=== PATIENT | female | born 1955 | race Caucasian/White ===

== ENCOUNTER 2023-10-22 20:41 | Inpatient (IN) | payer OTHER ==
[~2023-10-22] VITALS: Ht 167.6 cm; Wt 126.1 kg
[2023-10-22] MEDS: PIPERACILLIN/TAZOBACTAM 2.25 GM in NS 50 ML IV ONE (00:10)
[2023-10-22] MEDS: VANCOMYCIN HCL 1,500 MG in NS 250 ML IV ONE (01:15)
[2023-10-22 20:52] VITALS: BP_SYST 104; PULSE 92; RESP 18; TEMP 98.2; O2SAT 95
[2023-10-22 21:57] LABS: HEMATOCRIT 33.1 % (36-48); HEMOGLOBIN 10.7 g/dL (12.0-16.0); MEAN CORPUSCULAR HEMOGLOBIN 28 pg (27-31); MEAN CORPUSCULAR HGB CONC 32 % (32-36); MEAN CORPUSCULAR VOLUME 88 fL (79.0-98.0); PLATELET COUNT (AUTO) 400 K/uL (130-430); RED BLOOD CELL COUNT(AUTO) 3.77 MIL/uL (4.2-6.2); RED CELL DISTRIBUTION WIDTH 15.7 % (9.0-15.0)
[2023-10-22 22:07] LABS: WHITE BLOOD COUNT (AUTO) 31.2 K/uL (4.8-10.8)
[2023-10-22 22:09] LABS: ANION GAP 10 (5-15); CALCIUM 8.1 mg/dL (8.4-11.0); CARBON DIOXIDE 25 mmol/L (23-29); CHLORIDE 101 mmol/L (98-107); GFR AFRICAN AMERICAN 29 mL/min (>90); GLUCOSE 90 mg/dL (74-106); POTASSIUM 4.3 mmol/L (3.5-5.1); SODIUM SERUM 136 mmol/L (136-145); UREA NITROGEN, BLOOD 40 mg/dL (8-21)
[2023-10-22 22:10] LABS: INR 1.2 (0.8-1.2); PROTHROMBIN TIME 12.4 SECS (9.5-12.5)
[2023-10-22 22:13] LABS: GFR NON AFRICAN-AMERICAN 24 mL/min (>90)
[2023-10-22 22:15] LABS: ANISOCYTOSIS 1+; BAND % (MANUAL) 6 % (0-6); BASOPHILS % (MANUAL) 0 % (0-2); EOSINOPHILS % (MANUAL) 0 % (0-7); LYMPHOCYTES % (MANUAL) 3 % (20-46); MONOCYTES % (MANUAL) 3 % (0-11); OVALOCYTES FEW; PLATELET ESTIMATE ADEQUATE (ADEQUATE); TARGET CELLS RARE
[2023-10-22 22:16] LABS: ACETONE, SERUM NEGATIVE (NEGATIVE)
[2023-10-22 22:42] LABS: ALANINE AMINOTRANSFERASE 14 U/L (12-78); ALBUMIN 1.6 g/dL (3.4-4.8); ALCOHOL, BLOOD 3 mg/dL (<10); ASPARTATE AMINOTRANSFERASE 47 U/L (10-37); BILIRUBIN,DIRECT 1.7 mg/dL (0.0-0.3); CREATINE KINASE, TOTAL 93 U/L (26-192); SALICYLATE 2 mg/dL (3-30); TOTAL BILIRUBIN 2.8 mg/dL (0.0-1.0); TOTAL PROTEIN, SERUM 6.6 g/dL (6.4-8.3)
[2023-10-22 22:43] LABS: ACETAMINOPHEN < 1 ug/mL (1-30)
[2023-10-22] MEDS ORDERED: PIPERACILLIN/TAZOBACTAM 2.25 GM VIAL IV ONE ×2 (22:54)
[2023-10-22] MEDS ORDERED: VANCOMYCIN HCL 1000 MG/VIAL IV ONE (22:54)
[2023-10-22 22:55] LABS: BARBITURATE, URINE NEGATIVE (NEG <=200); BENZODIAZEPINE, URINE NEGATIVE (NEG <=150); CANNABINOID, URINE NEGATIVE (NEG <=50); COCAINE, URINE NEGATIVE (NEG <=150); METHAMPHETAMINES SCREEN,URINE NEGATIVE (NEG <=500); OPIATE, URINE NEGATIVE (NEG <=100); PHENCYCLIDINE SCREEN,URINE NEGATIVE (NEG <=25); UR TRICYCLIC ANTIDEPRESSANTS POSITIVE (NEG <=300); URINE AMPHETAMINE NEGATIVE (NEG <=500); URINE METHADONE NEGATIVE (NEG <=200); URINE OXYCODONE SCREEN NEGATIVE (NEG <=100)
[2023-10-22] MEDS ORDERED: VANCOMYCIN HCL 500 MG/VIAL IV ONE (22:55)
[2023-10-22 23:09] LABS: CLARITY/URINE CLOUDY (CLEAR)
[2023-10-22] MEDS: NS 500 ML IV ONE (23:11)
[2023-10-22 23:14] LABS: COLOR,URINE RED (YELLOW)
[2023-10-22 23:15] LABS: BACTERIA,URINE MODERATE /HPF (None Seen); WBC,URINE 50-80 /HPF (0-3)
[2023-10-22 23:16] LABS: MUCUS,URINE None Seen /LPF (None Seen)
[2023-10-22] MEDS: ASPIRIN 300 MG/SUPP.RECT SUPP RC ONE (23:30)
[2023-10-23] VITALS (24 sets, daily range): BP systolic 62–125; PULSE 77–97; RESP 9–26; TEMP 95.8–99.6; O2SAT 89–100
[2023-10-23] MEDS: ASPIRIN 300 MG/SUPP.RECT SUPP RC ONE (00:18)
[2023-10-23] MEDS: HEPARIN 25,000 UNITS/D5W 250ML 250 ML IV ONE (02:15)
[2023-10-23] MEDS: D5NS 1,000 ML IV ONE (03:23)
[2023-10-23] MEDS: HEPARIN SODIUM,PORCINE 5,000 UNITS/ML VIAL IVP ONE (03:30)
[2023-10-23] MEDS ORDERED: NOREPINEPHRINE BITARTRATE 4 MG in D5W 246 ML IV PRN (03:45)
[2023-10-23] MEDS ORDERED: HEPARIN SODIUM,PORCINE 2000 UNITS/0.4 ML BOLUS IVP PRN ×2 (03:45→09:45)
[2023-10-23] MEDS ORDERED: HEPARIN SODIUM,PORCINE 3000 UNITS/0.6 ML BOLUS IVP PRN ×2 (03:45→09:45)
[2023-10-23] MEDS: NOREPINEPHRINE 4 MG/4 ML VIAL IV ONE ×2 (03:50→08:10)
[2023-10-23] MEDS: NOREPINEPHRINE BITARTRATE 4 MG in NS 246 ML IV ONE (04:03)
[2023-10-23] MEDS: HEPARIN 25,000 UNITS in 250 ML PREMIX IV PRN (04:06)
[2023-10-23] MEDS ORDERED: *HEPARIN PER PHARMACY XX PRN (09:30)
[2023-10-23] MEDS ORDERED: LORazepam 2 MG/ML VIAL IVP PRN (09:30)
[2023-10-23 10:24] LABS: BASOPHILS % (AUTO) 0.1 % (0.0-2.0); EOSINOPHILS # (AUTO) 0.3 K/uL (0.0-0.4); EOSINOPHILS % (AUTO) 0.9 % (0.0-4.0); HEMATOCRIT 32.2 % (36-48); HEMOGLOBIN 10.3 g/dL (12.0-16.0); LYMPHOCYTES # (AUTO) 1.1 K/uL (1.0-5.5); MEAN CORPUSCULAR HEMOGLOBIN 29 pg (27-31); MEAN CORPUSCULAR HGB CONC 32 % (32-36); MEAN CORPUSCULAR VOLUME 89 fL (79.0-98.0); MONOCYTES # (AUTO) 1.4 K/uL (0.0-1.0); MONOCYTES % (AUTO) 5.3 % (1.7-9.3); NEUTROPHILS # (AUTO) 24.3 K/uL (1.8-7.7); PLATELET COUNT (AUTO) 374 K/uL (130-430); RED BLOOD CELL COUNT(AUTO) 3.61 MIL/uL (4.2-6.2); WHITE BLOOD COUNT (AUTO) 27.1 K/uL (4.8-10.8)
[2023-10-23 10:25] LABS: NEUTROPHILS % (AUTO) 89.7 % (40.0-70.0)
[2023-10-23] MEDS: D5/0.45 NS 1,000 ML IV SCH (10:44)
[2023-10-23] MEDS: NOREPINEPHRINE BITARTRATE 4 MG in NS 246 ML IV PRN (10:58)
[2023-10-23 11:05] LABS: ALBUMIN 1.7 g/dL (3.4-4.8); CALCIUM 8.1 mg/dL (8.4-11.0); CREATININE 2.5 mg/dL (0.55-1.30); PHOSPHORUS 5.4 mg/dL (2.7-4.5); POTASSIUM 3.8 mmol/L (3.5-5.1); TOTAL BILIRUBIN 2.8 mg/dL (0.0-1.0); TOTAL PROTEIN, SERUM 6.6 g/dL (6.4-8.3)
[2023-10-23] MEDS: FUROSEMIDE 20 MG/2 ML VIAL IVP ONE (12:24)
[2023-10-23] MEDS: PIPERACILLIN/TAZO 2.25G/DEX-IS 50 ML IV SCH (12:28)
[2023-10-23] MEDS: NOREPINEPHR 16 MG/250 mL NS 250 ML IV PRN (13:48)
[2023-10-23] MEDS: *HEPARIN PER PHARMACY XX ONE (21:05)
[2023-10-24] VITALS (23 sets, daily range): BP systolic 77–120; PULSE 79–98; RESP 7–15; TEMP 96.1–98.6; O2SAT 92–99
[2023-10-24 05:32] LABS: BASOPHILS % (AUTO) 0.1 % (0.0-2.0); EOSINOPHILS # (AUTO) 0.1 K/uL (0.0-0.4); EOSINOPHILS % (AUTO) 0.3 % (0.0-4.0); HEMATOCRIT 29.3 % (36-48); HEMOGLOBIN 9.7 g/dL (12.0-16.0); LYMPHOCYTES # (AUTO) 1.1 K/uL (1.0-5.5); LYMPHOCYTES % (AUTO) 4.6 % (20.5-51.5); MEAN CORPUSCULAR HEMOGLOBIN 29 pg (27-31); MEAN CORPUSCULAR HGB CONC 33 % (32-36); MEAN CORPUSCULAR VOLUME 88 fL (79.0-98.0); MONOCYTES # (AUTO) 1.2 K/uL (0.0-1.0); MONOCYTES % (AUTO) 5.2 % (1.7-9.3); NEUTROPHILS # (AUTO) 20.4 K/uL (1.8-7.7); NEUTROPHILS % (AUTO) 89.8 % (40.0-70.0); PLATELET COUNT (AUTO) 388 K/uL (130-430); RED BLOOD CELL COUNT(AUTO) 3.34 MIL/uL (4.2-6.2); RED CELL DISTRIBUTION WIDTH 15.6 % (9.0-15.0); WHITE BLOOD COUNT (AUTO) 22.7 K/uL (4.8-10.8)
[2023-10-24 05:52] LABS: CALCIUM 7.9 mg/dL (8.4-11.0); CREATININE 2.91 mg/dL (0.55-1.30); POTASSIUM 3.6 mmol/L (3.5-5.1)
[2023-10-24 09:50] LABS: ABG O2 SAT% ESTIMATE 96.5 % (94.0-100.0); BLOOD GAS HCO3 19.9 mmol/L (21.0-27.0); BLOOD GAS PCO2 41.5 mmHg (35.0-45.0); BLOOD GAS PO2 93.8 mmHg (75.0-100.0)
[2023-10-24 09:55] LABS: BLOOD GAS BASE EXCESS -6.2 mmol/L (-3.0-3.0); BLOOD GAS PH 7.298 (7.350-7.450)
[2023-10-24] MEDS: CALCIUM GLUC 2 GM/100ML-NACL 100 ML IV ONE (10:06)
[2023-10-24] MEDS: ONDANSETRON HCL 4 MG/2 ML VIAL IVP PRN (10:21)
[2023-10-24] MEDS ORDERED: ALBMDI INH (11:12)
[2023-10-24] MEDS ORDERED: HYDR-3917 PO (11:12)
[2023-10-24] MEDS ORDERED: LISI20TA30 PO (11:12)
[2023-10-24] MEDS ORDERED: LIP40 PO (11:12)
[2023-10-24] MEDS ORDERED: OMEP20CA15 PO (11:12)
[2023-10-24] MEDS ORDERED: FURO-149 PO (11:12)
[2023-10-24] MEDS ORDERED: HYDR-500 PO (11:12)
[2023-10-24] MEDS ORDERED: METF-379 PO (11:12)
[2023-10-24] MEDS ORDERED: CARV6.2554 PO (11:12)
[2023-10-24] MEDS: SODIUM BICARBONATE 8.4% JECT 150 MEQ in D5W 1,000 ML IVP SCH (13:17)
[2023-10-24] MEDS: BUMETANIDE 0.25 MG/ML; 10 ML VIAL IVP ONE (16:47)
[2023-10-24] MEDS: ALBUMIN HUMAN 25% 100 ML IV SCH (16:48)
[2023-10-24] MEDS: VANCOMYCIN HCL ORAL SOLUTION 250 MG/5 ML, 80 ML PO SCH (17:00)
[2023-10-25] VITALS (21 sets, daily range): BP systolic 87–135; PULSE 60–84; RESP 5–16; TEMP 98.1–98.6; O2SAT 89–100
[2023-10-25] MEDS: HEPARIN 25,000 UNITS in 250 ML PREMIX IV PRN (02:05)
[2023-10-25 05:24] LABS: ERYTHROCYTE SEDIMENTATION RATE 23 MM/HR (0-20)
[2023-10-25 05:36] LABS: BASOPHILS % (AUTO) 0.1 % (0.0-2.0); EOSINOPHILS # (AUTO) 0.1 K/uL (0.0-0.4); EOSINOPHILS % (AUTO) 0.4 % (0.0-4.0); HEMATOCRIT 27.3 % (36-48); HEMOGLOBIN 8.9 g/dL (12.0-16.0); LYMPHOCYTES # (AUTO) 0.9 K/uL (1.0-5.5); MEAN CORPUSCULAR HEMOGLOBIN 29 pg (27-31); MEAN CORPUSCULAR HGB CONC 33 % (32-36); MEAN CORPUSCULAR VOLUME 89 fL (79.0-98.0); MONOCYTES # (AUTO) 1.1 K/uL (0.0-1.0); MONOCYTES % (AUTO) 6.3 % (1.7-9.3); NEUTROPHILS # (AUTO) 15.4 K/uL (1.8-7.7); NEUTROPHILS % (AUTO) 88.2 % (40.0-70.0); PLATELET COUNT (AUTO) 344 K/uL (130-430); RED BLOOD CELL COUNT(AUTO) 3.06 MIL/uL (4.2-6.2); RED CELL DISTRIBUTION WIDTH 16.3 % (9.0-15.0); WHITE BLOOD COUNT (AUTO) 17.4 K/uL (4.8-10.8)
[2023-10-25 08:36] LABS: POTASSIUM 3.4 mmol/L (3.5-5.1)
[2023-10-25 08:37] LABS: CALCIUM 8.4 mg/dL (8.4-11.0); CREATININE 3.38 mg/dL (0.55-1.30)
[2023-10-25 08:38] LABS: ALBUMIN 2.7 g/dL (3.4-4.8); PHOSPHORUS 4.8 mg/dL (2.7-4.5); TOTAL PROTEIN, SERUM 7.3 g/dL (6.4-8.3)
[2023-10-25] MEDS ORDERED: KCL 40 mEq in 100 mL (PREMIX) 100 ML IV ONE (09:15)
[2023-10-25] MEDS: KCL 20 mEq in 100 mL (PREMIX) 100 ML IV ONE (13:34)
[2023-10-25] MEDS ORDERED: MENTHOL/ZINC OXIDE 113 GM OINT. TP PRN ×2 (17:00→22:00)
[2023-10-25] MEDS: BALSAM PERU/CASTOR OIL 56.7 GM OINT...G. TP SCH (19:08)
[2023-10-25] MEDS: BUMETANIDE 0.25 MG/ML; 10 ML VIAL IVP ONE (19:09)
[2023-10-25 20:47] LABS: INR 1.2 (0.8-1.2); PROTHROMBIN TIME 12.6 SECS (9.5-12.5)
[2023-10-26] VITALS (24 sets, daily range): BP systolic 95–158; PULSE 67–80; RESP 8–30; TEMP 96.4–97.3; O2SAT 84–100
[2023-10-26 05:37] LABS: ERYTHROCYTE SEDIMENTATION RATE 24 MM/HR (0-20)
[2023-10-26 06:03] LABS: CALCIUM 8.2 mg/dL (8.4-11.0); CREATININE 3.86 mg/dL (0.55-1.30); PHOSPHORUS 5.1 mg/dL (2.7-4.5); POTASSIUM 3.9 mmol/L (3.5-5.1)
[2023-10-26 06:09] LABS: BASOPHILS % (AUTO) 0.1 % (0.0-2.0); EOSINOPHILS # (AUTO) 0.1 K/uL (0.0-0.4); EOSINOPHILS % (AUTO) 0.3 % (0.0-4.0); HEMATOCRIT 29.1 % (36-48); HEMOGLOBIN 9.4 g/dL (12.0-16.0); LYMPHOCYTES # (AUTO) 0.8 K/uL (1.0-5.5); LYMPHOCYTES % (AUTO) 3.7 % (20.5-51.5); MEAN CORPUSCULAR HEMOGLOBIN 28 pg (27-31); MEAN CORPUSCULAR HGB CONC 32 % (32-36); MEAN CORPUSCULAR VOLUME 88 fL (79.0-98.0); MONOCYTES # (AUTO) 1.1 K/uL (0.0-1.0); MONOCYTES % (AUTO) 5.5 % (1.7-9.3); NEUTROPHILS # (AUTO) 18.9 K/uL (1.8-7.7); PLATELET COUNT (AUTO) 354 K/uL (130-430); RED BLOOD CELL COUNT(AUTO) 3.31 MIL/uL (4.2-6.2); WHITE BLOOD COUNT (AUTO) 20.9 K/uL (4.8-10.8)
[2023-10-26 10:57] LABS: NEUTROPHILS % (AUTO) 90.4 % (40.0-70.0)
[2023-10-26] MEDS: HEPARIN SODIUM, PORCINE 10,000 UNITS/ 10 ML VIAL MC PRN (12:56)
[2023-10-27] VITALS (30 sets, daily range): BP systolic 80–152; PULSE 62–90; RESP 12–22; TEMP 97.2–98.5; O2SAT 87–100
[2023-10-27 05:37] LABS: BASOPHILS % (AUTO) 0.1 % (0.0-2.0); EOSINOPHILS # (AUTO) 0.1 K/uL (0.0-0.4); EOSINOPHILS % (AUTO) 0.3 % (0.0-4.0); HEMATOCRIT 29.1 % (36-48); HEMOGLOBIN 9.4 g/dL (12.0-16.0); LYMPHOCYTES # (AUTO) 0.9 K/uL (1.0-5.5); MEAN CORPUSCULAR HEMOGLOBIN 28 pg (27-31); MEAN CORPUSCULAR HGB CONC 33 % (32-36); MEAN CORPUSCULAR VOLUME 87 fL (79.0-98.0); MONOCYTES # (AUTO) 1.2 K/uL (0.0-1.0); MONOCYTES % (AUTO) 5.5 % (1.7-9.3); NEUTROPHILS # (AUTO) 19.3 K/uL (1.8-7.7); NEUTROPHILS % (AUTO) 90.1 % (40.0-70.0); PLATELET COUNT (AUTO) 259 K/uL (130-430); RED BLOOD CELL COUNT(AUTO) 3.33 MIL/uL (4.2-6.2); RED CELL DISTRIBUTION WIDTH 16.6 % (9.0-15.0); WHITE BLOOD COUNT (AUTO) 21.4 K/uL (4.8-10.8)
[2023-10-27 05:42] LABS: ALBUMIN 1.9 g/dL (3.4-4.8); CALCIUM 8.2 mg/dL (8.4-11.0); CREATININE 3.58 mg/dL (0.55-1.30); PHOSPHORUS 4.4 mg/dL (2.7-4.5); POTASSIUM 3.4 mmol/L (3.5-5.1); TOTAL BILIRUBIN 2.2 mg/dL (0.0-1.0); TOTAL PROTEIN, SERUM 6.7 g/dL (6.4-8.3)
[2023-10-27 05:57] LABS: ERYTHROCYTE SEDIMENTATION RATE 14 MM/HR (0-20)
[2023-10-27] MEDS ORDERED: DEXTROSE 50% JECT 50 ML DISP.SYRIN IVP PRN (08:45)
[2023-10-27] MEDS: ALBUMIN HUMAN 25% 100 ML IV ONE (21:00)
[2023-10-27] MEDS: MVI IV SCH (21:13)
[2023-10-27] MEDS: POTASSIUM CHLORIDE IV SCH (21:13)
[2023-10-27] MEDS: TRACE ELEMENTS IV SCH (21:13)
[2023-10-27] MEDS: TPN CENTRAL IV SCH (21:13)
[2023-10-27] MEDS: [UNRECOGNIZED DRUG - OTHER] IV SCH (21:13)
[2023-10-27] MEDS: ALBUMIN HUMAN 25% 50 ML IV ONE (21:16)
[2023-10-27] MEDS ORDERED: HEPARIN SODIUM,PORCINE 5,000 UNITS/ML VIAL IV PRN (21:45)
[2023-10-27] MEDS: HEPARIN SODIUM,PORCINE 5,000 UNITS/ML VIAL ONE (23:26)
[2023-10-28] VITALS (28 sets, daily range): BP systolic 89–149; PULSE 75–99; RESP 10–36; TEMP 97.5–98.2; O2SAT 90–98
[2023-10-28] MEDS: INSULIN REGULAR, HUMAN 100 UNITS/ML, 3 ML VIAL (humuLIN R) SUBCUT PRN (00:05)
[2023-10-28 06:33] LABS: BASOPHILS % (AUTO) 0.1 % (0.0-2.0); EOSINOPHILS # (AUTO) 0.1 K/uL (0.0-0.4); EOSINOPHILS % (AUTO) 0.2 % (0.0-4.0); HEMATOCRIT 28.1 % (36-48); HEMOGLOBIN 9.2 g/dL (12.0-16.0); LYMPHOCYTES # (AUTO) 1.3 K/uL (1.0-5.5); LYMPHOCYTES % (AUTO) 4.3 % (20.5-51.5); MEAN CORPUSCULAR HEMOGLOBIN 29 pg (27-31); MEAN CORPUSCULAR HGB CONC 33 % (32-36); MEAN CORPUSCULAR VOLUME 87 fL (79.0-98.0); MONOCYTES # (AUTO) 1.6 K/uL (0.0-1.0); MONOCYTES % (AUTO) 5.3 % (1.7-9.3); NEUTROPHILS # (AUTO) 26.9 K/uL (1.8-7.7); NEUTROPHILS % (AUTO) 90.1 % (40.0-70.0); PLATELET COUNT (AUTO) 194 K/uL (130-430); RED BLOOD CELL COUNT(AUTO) 3.22 MIL/uL (4.2-6.2); RED CELL DISTRIBUTION WIDTH 16.5 % (9.0-15.0); WHITE BLOOD COUNT (AUTO) 29.8 K/uL (4.8-10.8)
[2023-10-28 06:36] LABS: CALCIUM 8.1 mg/dL (8.4-11.0); CREATININE 3.45 mg/dL (0.55-1.30); PHOSPHORUS 3.8 mg/dL (2.7-4.5); POTASSIUM 3.4 mmol/L (3.5-5.1); TOTAL BILIRUBIN 2.8 mg/dL (0.0-1.0); TOTAL PROTEIN, SERUM 6.5 g/dL (6.4-8.3)
[2023-10-28 08:45] LABS: ERYTHROCYTE SEDIMENTATION RATE 49 MM/HR (0-20)
[2023-10-28] MEDS: KCL 40 mEq in 100 mL (PREMIX) 100 ML IV ONE (10:10)
[2023-10-28 12:07] LABS: HEPATITIS A AB, IgM Negative (Negative); HEPATITIS B CORE AB, IgM Negative (Negative); HEPATITIS B SURFACE AG Negative (Negative); HEPATITIS C VIRUS AB Non Reactive (Non Reactive)
[2023-10-28] MEDS: CALCIUM GLUCONATE 2 GM in NS 100 ML IV ONE (12:16)
[2023-10-28] MEDS: POTASSIUM CHLORIDE IV SCH (22:33)
[2023-10-28] MEDS: TPN CENTRAL IV SCH (22:33)
[2023-10-28] MEDS: TRACE ELEMENTS IV SCH (22:33)
[2023-10-28] MEDS: MVI IV SCH (22:33)
[2023-10-28] MEDS: [UNRECOGNIZED DRUG - OTHER] IV SCH (22:33)
[2023-10-29] VITALS (33 sets, daily range): BP systolic 82–124; PULSE 70–85; RESP 10–28; TEMP 96.6–98.6; O2SAT 94–100
[2023-10-29] MEDS: *TPN PER PHARMACY XX PRN (00:53)
[2023-10-29 04:07] LABS: QUANTIFERON TB GOLD Indeterminate (Negative)
[2023-10-29] MEDS: VANCOMYCIN HCL 1000 MG/VIAL IV ONE (04:30)
[2023-10-29] MEDS: VANCOMYCIN HCL 500 MG/VIAL IV ONE (04:30)
[2023-10-29] MEDS: VANCOMYCIN HCL 1,500 MG in NS 500 ML IV ONE (05:40)
[2023-10-29 06:14] LABS: HEMATOCRIT 27.6 % (36-48); HEMOGLOBIN 8.9 g/dL (12.0-16.0); MEAN CORPUSCULAR HEMOGLOBIN 28 pg (27-31); MEAN CORPUSCULAR HGB CONC 32 % (32-36); MEAN CORPUSCULAR VOLUME 87 fL (79.0-98.0); PLATELET COUNT (AUTO) 144 K/uL (130-430); RED BLOOD CELL COUNT(AUTO) 3.18 MIL/uL (4.2-6.2); RED CELL DISTRIBUTION WIDTH 16.2 % (9.0-15.0); WHITE BLOOD COUNT (AUTO) 26.2 K/uL (4.8-10.8)
[2023-10-29 06:43] LABS: ERYTHROCYTE SEDIMENTATION RATE 46 MM/HR (0-20)
[2023-10-29 07:12] LABS: ALBUMIN 1.7 g/dL (3.4-4.8); CALCIUM 7.9 mg/dL (8.4-11.0); CREATININE 3.8 mg/dL (0.55-1.30); POTASSIUM 3.4 mmol/L (3.5-5.1); TOTAL BILIRUBIN 2.2 mg/dL (0.0-1.0); TOTAL PROTEIN, SERUM 6.2 g/dL (6.4-8.3)
[2023-10-29 09:33] LABS: ANISOCYTOSIS 1+; BASOPHILS % (MANUAL) 0 % (0-2); EOSINOPHILS % (MANUAL) 0 % (0-7); LYMPHOCYTES % (MANUAL) 1 % (20-46); MONOCYTES % (MANUAL) 3 % (0-11); OVALOCYTES FEW; PLATELET ESTIMATE ADEQUATE (ADEQUATE); TARGET CELLS MODERATE
[2023-10-29 09:41] LABS: WBC MORPHOLOGY TOXIC GRANULATION
[2023-10-29] MEDS: MEROPENEM 500 MG in NS 50 ML IV SCH (15:21)
[2023-10-29] MEDS: KCL 40 mEq in 100 mL (PREMIX) 100 ML IV ONE (16:38)
[2023-10-29] MEDS: TPN CENTRAL IV SCH (21:04)
[2023-10-29] MEDS: TRACE ELEMENTS IV SCH (21:04)
[2023-10-29] MEDS: [UNRECOGNIZED DRUG - OTHER] IV SCH (21:04)
[2023-10-29] MEDS: MVI IV SCH (21:04)
[2023-10-29] MEDS: POTASSIUM CHLORIDE IV SCH (21:04)
[2023-10-30] VITALS (31 sets, daily range): BP systolic 102–156; PULSE 70–91; RESP 6–48; TEMP 96.9–98; O2SAT 90–100
[2023-10-30] MEDS: traMADol HCL HCL 50 MG TABLET (ULTRAM) PO PRN (03:48)
[2023-10-30 05:54] LABS: BASOPHILS % (AUTO) 0.1 % (0.0-2.0); EOSINOPHILS # (AUTO) 0.2 K/uL (0.0-0.4); EOSINOPHILS % (AUTO) 0.6 % (0.0-4.0); HEMATOCRIT 27.3 % (36-48); LYMPHOCYTES # (AUTO) 1.5 K/uL (1.0-5.5); LYMPHOCYTES % (AUTO) 5.5 % (20.5-51.5); MEAN CORPUSCULAR HEMOGLOBIN 28 pg (27-31); MEAN CORPUSCULAR HGB CONC 33 % (32-36); MEAN CORPUSCULAR VOLUME 86 fL (79.0-98.0); MONOCYTES % (AUTO) 7.3 % (1.7-9.3); NEUTROPHILS # (AUTO) 23.3 K/uL (1.8-7.7); PLATELET COUNT (AUTO) 104 K/uL (130-430); RED BLOOD CELL COUNT(AUTO) 3.17 MIL/uL (4.2-6.2); RED CELL DISTRIBUTION WIDTH 16.3 % (9.0-15.0); WHITE BLOOD COUNT (AUTO) 26.9 K/uL (4.8-10.8)
[2023-10-30 06:21] LABS: NEUTROPHILS % (AUTO) 86.5 % (40.0-70.0)
[2023-10-30 06:39] LABS: ALBUMIN 1.6 g/dL (3.4-4.8); CALCIUM 7.8 mg/dL (8.4-11.0); CREATININE 3.55 mg/dL (0.55-1.30); PHOSPHORUS 2.4 mg/dL (2.7-4.5); POTASSIUM 3.9 mmol/L (3.5-5.1); TOTAL PROTEIN, SERUM 6.4 g/dL (6.4-8.3)
[2023-10-30] MEDS ORDERED: IPRATROPIUM/ALBUTEROL SULFATE 3 ML AMPUL.NEB (DUONEB) INH PRN (08:45)
[2023-10-30 08:47] LABS: ERYTHROCYTE SEDIMENTATION RATE 45 MM/HR (0-20)
[2023-10-30] MEDS ORDERED: NALOXONE HCL 0.4 MG/ML AMP (NARCAN) IVP PRN (10:45)
[2023-10-30] MEDS: MORPHINE 2 MG/ML INJ. SYRINGE IVP ONE (11:19)
[2023-10-30] MEDS: IPRATROPIUM/ALBUTEROL SULFATE 3 ML AMPUL.NEB (DUONEB) INH SCH (11:20)
[2023-10-30] MEDS: CALCIUM GLUC 2 GM/100ML-NACL 100 ML IV ONE (11:20)
[2023-10-30] MEDS: NA PHOS 15 MM in NS 250 ML IV ONE (12:26)
[2023-10-30] MEDS: MORPHINE 2 MG/ML INJ. SYRINGE IVP PRN (16:08)
[2023-10-30] MEDS: TPN CENTRAL 0.0001 ML, SODIUM CHLORIDE 40 MEQ, POTASSIUM CHLORIDE 40 MEQ, K PHOS 12 MM,... IV SCH (20:02)
[2023-10-31] VITALS (29 sets, daily range): BP systolic 82–136; PULSE 70–85; RESP 16–44; TEMP 97.9–98.3; O2SAT 94–98
[2023-10-31] MEDS ORDERED: *HEPARIN PER PHARMACY XX PRN (04:45)
[2023-10-31] MEDS ORDERED: HEPARIN SODIUM,PORCINE 2000 UNITS/0.4 ML BOLUS IVP PRN (05:15)
[2023-10-31] MEDS ORDERED: HEPARIN SODIUM,PORCINE 3000 UNITS/0.6 ML BOLUS IVP PRN (05:15)
[2023-10-31] MEDS: HEPARIN 25,000 UNITS in 250 ML PREMIX IV PRN (06:01)
[2023-10-31 06:10] LABS: BASOPHILS % (AUTO) 0.2 % (0.0-2.0); EOSINOPHILS # (AUTO) 0.1 K/uL (0.0-0.4); EOSINOPHILS % (AUTO) 0.5 % (0.0-4.0); HEMATOCRIT 26.2 % (36-48); HEMOGLOBIN 8.6 g/dL (12.0-16.0); LYMPHOCYTES # (AUTO) 1.5 K/uL (1.0-5.5); LYMPHOCYTES % (AUTO) 6.4 % (20.5-51.5); MEAN CORPUSCULAR HEMOGLOBIN 28 pg (27-31); MEAN CORPUSCULAR HGB CONC 33 % (32-36); MEAN CORPUSCULAR VOLUME 86 fL (79.0-98.0); MONOCYTES # (AUTO) 2.3 K/uL (0.0-1.0); MONOCYTES % (AUTO) 9.5 % (1.7-9.3); PLATELET COUNT (AUTO) 111 K/uL (130-430); RED BLOOD CELL COUNT(AUTO) 3.04 MIL/uL (4.2-6.2); RED CELL DISTRIBUTION WIDTH 16.5 % (9.0-15.0); WHITE BLOOD COUNT (AUTO) 23.9 K/uL (4.8-10.8)
[2023-10-31] MEDS: HEPARIN SODIUM,PORCINE 5,000 UNITS/ML VIAL IVP ONE (06:58)
[2023-10-31] MEDS: HEPARIN SODIUM,PORCINE 5,000 UNITS/ML VIAL ONE (06:59)
[2023-10-31 07:09] LABS: ALBUMIN 1.6 g/dL (3.4-4.8); CALCIUM 7.9 mg/dL (8.4-11.0); CREATININE 3.13 mg/dL (0.55-1.30); PHOSPHORUS 2.7 mg/dL (2.7-4.5); POTASSIUM 3.6 mmol/L (3.5-5.1); TOTAL BILIRUBIN 1.6 mg/dL (0.0-1.0); TOTAL PROTEIN, SERUM 6.3 g/dL (6.4-8.3)
[2023-10-31 07:26] LABS: NEUTROPHILS % (AUTO) 83.4 % (40.0-70.0)
[2023-10-31 08:54] LABS: ERYTHROCYTE SEDIMENTATION RATE 72 MM/HR (0-20)
[2023-10-31] MEDS: VANCOMYCIN HCL 1.25 GM/NS 250 ML IV SCH (09:00)
[2023-10-31] MEDS: CALCIUM GLUC 2 GM/100ML-NACL 100 ML IV ONE (12:25)
[2023-10-31] MEDS: HEPARIN SODIUM,PORCINE 5,000 UNITS/ML VIAL MC ONE (18:12)
[2023-10-31] MEDS: [UNRECOGNIZED DRUG - OTHER] IV SCH (20:23)
[2023-10-31] MEDS: SODIUM CHLORIDE IV SCH (20:23)
[2023-10-31] MEDS: POTASSIUM CHLORIDE IV SCH (20:23)
[2023-10-31] MEDS: TPN CENTRAL IV SCH (20:23)
[2023-11-01] VITALS (28 sets, daily range): BP systolic 82–137; PULSE 81–97; RESP 7–40; TEMP 98–98.3; O2SAT 90–97
[2023-11-01 05:14] LABS: ERYTHROCYTE SEDIMENTATION RATE 81 MM/HR (0-20)
[2023-11-01 05:40] LABS: TOTAL IRON BIND. CAPACITY 137 ug/dL (250-450)
[2023-11-01 06:08] LABS: BASOPHILS % (AUTO) 0.2 % (0.0-2.0); EOSINOPHILS # (AUTO) 0.2 K/uL (0.0-0.4); EOSINOPHILS % (AUTO) 0.7 % (0.0-4.0); HEMOGLOBIN 8.2 g/dL (12.0-16.0); LYMPHOCYTES # (AUTO) 1.7 K/uL (1.0-5.5); LYMPHOCYTES % (AUTO) 7.2 % (20.5-51.5); MEAN CORPUSCULAR HEMOGLOBIN 29 pg (27-31); MEAN CORPUSCULAR HGB CONC 33 % (32-36); MEAN CORPUSCULAR VOLUME 87 fL (79.0-98.0); MONOCYTES # (AUTO) 2.3 K/uL (0.0-1.0); MONOCYTES % (AUTO) 9.5 % (1.7-9.3); NEUTROPHILS # (AUTO) 19.7 K/uL (1.8-7.7); NEUTROPHILS % (AUTO) 82.4 % (40.0-70.0); PLATELET COUNT (AUTO) 110 K/uL (130-430); RED BLOOD CELL COUNT(AUTO) 2.89 MIL/uL (4.2-6.2); RED CELL DISTRIBUTION WIDTH 16.5 % (9.0-15.0); WHITE BLOOD COUNT (AUTO) 23.8 K/uL (4.8-10.8)
[2023-11-01 06:22] LABS: ALBUMIN 1.6 g/dL (3.4-4.8); CALCIUM 7.8 mg/dL (8.4-11.0); CREATININE 2.41 mg/dL (0.55-1.30); PHOSPHORUS 2.5 mg/dL (2.7-4.5); POTASSIUM 3.8 mmol/L (3.5-5.1); TOTAL BILIRUBIN 1.7 mg/dL (0.0-1.0); TOTAL PROTEIN, SERUM 6.4 g/dL (6.4-8.3)
[2023-11-01] MEDS: TPN CENTRAL IV SCH (20:16)
[2023-11-01] MEDS: POTASSIUM CHLORIDE IV SCH (20:16)
[2023-11-01] MEDS: [UNRECOGNIZED DRUG - OTHER] IV SCH (20:16)
[2023-11-01] MEDS: SODIUM CHLORIDE IV SCH (20:16)
[2023-11-02] VITALS (25 sets, daily range): BP systolic 25–137; PULSE 60–87; RESP 0–40; TEMP 98–98.4; O2SAT 0–99
[2023-11-02 05:40] LABS: HEMATOCRIT 24.5 % (36-48); HEMOGLOBIN 7.9 g/dL (12.0-16.0); MEAN CORPUSCULAR HEMOGLOBIN 28 pg (27-31); MEAN CORPUSCULAR HGB CONC 32 % (32-36); MEAN CORPUSCULAR VOLUME 88 fL (79.0-98.0); PLATELET COUNT (AUTO) 137 K/uL (130-430); RED CELL DISTRIBUTION WIDTH 16.3 % (9.0-15.0); WHITE BLOOD COUNT (AUTO) 21.8 K/uL (4.8-10.8)
[2023-11-02 05:41] LABS: ALBUMIN 1.6 g/dL (3.4-4.8); CALCIUM 7.9 mg/dL (8.4-11.0); CREATININE 2.18 mg/dL (0.55-1.30); PHOSPHORUS 3.1 mg/dL (2.7-4.5); TOTAL BILIRUBIN 1.5 mg/dL (0.0-1.0); TOTAL PROTEIN, SERUM 6.7 g/dL (6.4-8.3)
[2023-11-02] MEDS ORDERED: FOLIC ACID 1 MG TABLET PO SCH (09:00)
[2023-11-02] MEDS: SOD FERRIC GLUC COMPLEX/SUC 125 MG in NS 100 ML IV SCH (10:28)
[2023-11-02 11:48] LABS: ATYPICAL LYMPHOCYTES % 1 % (0-0); BAND % (MANUAL) 5 % (0-6); BASOPHILS % (MANUAL) 0 % (0-2); EOSINOPHILS % (MANUAL) 1 % (0-7); LYMPHOCYTES % (MANUAL) 10 % (20-46); METAMYELOCYTES % 5 % (0-0); MONOCYTES % (MANUAL) 13 % (0-11)
[2023-11-02 11:49] LABS: ANISOCYTOSIS 1+; PLATELET ESTIMATE ADEQUATE (ADEQUATE)
[2023-11-02 12:10] LABS: ERYTHROCYTE SEDIMENTATION RATE 95 MM/HR (0-20)
[2023-11-02] MEDS: FOLIC ACID 5 MG/ML VIAL IV ONE (12:56)
[2023-11-02] MEDS ORDERED: DOPamine PREMIX 250 ML IV ONE (16:46)
[2023-11-02] MEDS ORDERED: EPINEPHrine JECT 0.1 MG/ML SYR ONE (16:58)
[2023-11-02] MEDS ORDERED: SODIUM BICARBONATE 8.4% JECT 50 MEQ/50 ML SYRINGE ONE (16:58)
[2023-11-02] MEDS ORDERED: SODIUM CHLORIDE IV SCH (21:00)
[2023-11-02] MEDS ORDERED: [UNRECOGNIZED DRUG - OTHER] IV SCH (21:00)
[2023-11-02] MEDS ORDERED: POTASSIUM CHLORIDE IV SCH (21:00)
[2023-11-02] MEDS ORDERED: TPN CENTRAL IV SCH (21:00)
[2023-11-02] MEDS ORDERED: BUMEX 1 MG/4 ML VIAL IVP SCH (21:00)
== END 2023-11-02 16:58 | DRG 871 ==
LOC: SED 20:41 → SIC 10-23 02:35
PROVIDERS: ADMIT Preventive Medicine Preventive Medicine/Occupational Environmental Medicine; ATTEND Preventive Medicine Preventive Medicine/Occupational Environmental Medicine
PROC: 02HV33Z Insertion of Infusion Device into Superior Vena Cava, Percutaneous Approach (ICD-10-PCS; principal; 2023-10-23)
PROC: B548ZZA Ultrasonography of Superior Vena Cava, Guidance (ICD-10-PCS; 2023-10-23)
PROC: 02HV33Z Insertion of Infusion Device into Superior Vena Cava, Percutaneous Approach (ICD-10-PCS; 2023-10-25)
PROC: B548ZZA Ultrasonography of Superior Vena Cava, Guidance (ICD-10-PCS; 2023-10-25)
PROC: 5A1D70Z Performance of Urinary Filtration, Intermittent, Less than 6 Hours Per Day (ICD-10-PCS; 2023-10-27)
PROC: 5A0955A Assistance with Respiratory Ventilation, Greater than 96 Consecutive Hours, High Flow/Velocity Cannula (ICD-10-PCS; 2023-10-27)
PROC: 5A1D70Z Performance of Urinary Filtration, Intermittent, Less than 6 Hours Per Day (ICD-10-PCS; 2023-10-29)
PROC: 5A1D70Z Performance of Urinary Filtration, Intermittent, Less than 6 Hours Per Day (ICD-10-PCS; 2023-10-30)
PROC: 5A1D70Z Performance of Urinary Filtration, Intermittent, Less than 6 Hours Per Day (ICD-10-PCS; 2023-10-31)
DX: A41.9 Sepsis, unspecified organism (principal); E43 Unspecified severe protein-calorie malnutrition; I21.4 Non-ST elevation (NSTEMI) myocardial infarction; R65.21 Severe sepsis with septic shock; J18.9 Pneumonia, unspecified organism; I50.23 Acute on chronic systolic (congestive) heart failure; J96.01 Acute respiratory failure with hypoxia; N17.0 Acute kidney failure with tubular necrosis; I42.9 Cardiomyopathy, unspecified; Z68.41 Body mass index [BMI] 40.0-44.9, adult; I82.431 Acute embolism and thrombosis of right popliteal vein; E87.20 Acidosis, unspecified; I13.0 Hypertensive heart and chronic kidney disease with heart failure and stage 1 through stage 4 chronic kidney disease, or unspecified chronic kidney disease; N39.0 Urinary tract infection, site not specified; R13.10 Dysphagia, unspecified; I48.91 Unspecified atrial fibrillation; D69.6 Thrombocytopenia, unspecified; D63.8 Anemia in other chronic diseases classified elsewhere; E11.65 Type 2 diabetes mellitus with hyperglycemia; E66.01 Morbid (severe) obesity due to excess calories; K74.60 Unspecified cirrhosis of liver; I27.20 Pulmonary hypertension, unspecified; N18.31 Chronic kidney disease, stage 3a; E11.22 Type 2 diabetes mellitus with diabetic chronic kidney disease; E88.09 Other disorders of plasma-protein metabolism, not elsewhere classified; E83.52 Hypercalcemia; E83.51 Hypocalcemia; E87.6 Hypokalemia; E83.42 Hypomagnesemia; E83.39 Other disorders of phosphorus metabolism; E11.40 Type 2 diabetes mellitus with diabetic neuropathy, unspecified; E80.6 Other disorders of bilirubin metabolism; Z95.0 Presence of cardiac pacemaker; Z79.01 Long term (current) use of anticoagulants; B96.20 Unspecified Escherichia coli [E. coli] as the cause of diseases classified elsewhere; I46.9 Cardiac arrest, cause unspecified
CPT/HCPCS: 36415; 36600; 70450-TC; 71045; 71250-TC; 73700-TC; 74018; 76770; 80048; 80053; 80074; 80076; 80307; 81000; 81001; 81015; 82009; 82140; 82272; 82550; 82803; 82948; 83540; 83550; 83605; 83735; 83880; 84100; 84478; 84484; 85007; 85025; 85027; 85610; 85651; 85730; 86022; 86480; 87040; 87045-TC; 87046; 87081; 87086; 87186; 87230; 89055; 90935; 90937; 92610-GN; 92950; 93005; 93306; 93970; 94640; 99285; G0480; G0481; G0482; J0171; J0610; J1265; J1644; J1815; J1940; J2185; J2270; J2405; J2543; J2916; J3370; J3475; J3480; J3490; J7040; J7050; J7060; J7131; P9046